=== PATIENT | female | born 1955 | race Caucasian/White ===

== ENCOUNTER 2019-04-15 18:31 | Emergency (ER) | payer OTHER ==
[2019-04-15] MEDS ORDERED: traMADol 50 MG Tab PO ONE (19:04)
[2019-04-15] MEDS ORDERED: Acetaminophen 500 MG Tab PO ONE (19:04)
--- NOTE | 2019-04-15 19:12 | EDM.PDOC ---
ED HPI GENERAL MEDICAL PROBLEM - General Chief Complaint: Lower Extremity Injury/Pain Stated Complaint: RIGHT KNEE PAIN Time Seen by Provider: 04/15/19 18:50 Source of Information: Reports: Patient History Limitations: Reports: No Limitations - History of Present Illness INITIAL COMMENTS - FREE TEXT/NARRATIVE: Patient presented to the ED because of right knee pain. She tripped because of an electric cord and fell. She landed on her right knee but was able to ambulate afterwards with pain. She rate her pain 5/10,sharp and worse with movements. right knee Pain Score (Numeric/FACES): 1 - Related Data Allergies Allergy/AdvReac Type Severity Reaction Status Date / Time salmon Allergy Other Uncoded 04/15/19 18:51 Past Medical History HEENT History: Reports: Cataract, Impaired Vision Cardiovascular History: Reports: High Cholesterol, Hypertension Gastrointestinal History: Reports: GERD [employer] History: Reports: Other (See Below) Other [employer] History: hysterectomy - Past Surgical History HEENT Surgical History: Reports: Cataract Surgery, Other (See Below) Other HEENT Surgeries/Procedures: tooth extraction Social & Family History - Family History Family Medical History: Noncontributory - Tobacco Use Smoking Status *Q: Never Smoker - Caffeine Use Caffeine Use: Reports: Soda - Recreational Drug Use Recreational Drug Use: No Review of Systems - Review of Systems Review Of Systems: See Below Constitutional: Reports: No Symptoms Eyes: Reports: No Symptoms Ears: Reports: No Symptoms Nose: Reports: No Symptoms Mouth/Throat: Reports: No Symptoms Respiratory: Reports: No Symptoms Cardiovascular: Reports: No Symptoms GI/Abdominal: Reports: No Symptoms Genitourinary: Reports: No Symptoms Musculoskeletal: Reports: Other (tenderness over the medial and lateral aspect of the right knee) Neurological: Reports: No Symptoms Psychiatric: Reports: No Symptoms ED EXAM, GENERAL - Physical Exam Exam: See Below Exam Limited By: No Limitations General Appearance: Alert, No Apparent Distress Ears: Normal External Exam, Normal Canal Nose: Normal Inspection, Normal Mucosa, No Blood Throat/Mouth: Normal Inspection, Normal Lips, Normal Teeth, Normal Gums Head: Atraumatic, Normocephalic Neck: Normal Inspection, Supple, Non-Tender, Full Range of Motion Respiratory/Chest: No Respiratory Distress, Lungs Clear, Normal Breath Sounds Cardiovascular: Normal Peripheral Pulses, Regular Rate, Rhythm, No Edema, No Gallop, No Murmur GI/Abdominal: Normal Bowel Sounds, Soft, Non-Tender, No Organomegaly, No Distention Back Exam: Normal Inspection, Full Range of Motion Extremities: Normal Inspection, Normal Range of Motion, Other (tenderness- lateral and medial aspect of right knee) Course - Vital Signs Text/Narrative:: xray reviewed and discussed with patient and verbalized full understanding tramadol 100 mg with tylenol 1000 mg po x1 with significant relief of her pain. Last Recorded V/S: Last Vital Signs Temp 36.6 C 04/15/19 18:45 Pulse 65 04/15/19 18:45 Resp 14 04/15/19 18:45 BP 147/58 H 04/15/19 18:45 Pulse Ox 100 04/15/19 18:45 - Orders/Labs/Meds Meds: Medications Discontinued Medications Generic Name Dose Route Start Last Admin Trade Name Sophie PRN Reason Stop Dose Admin Acetaminophen 1,000 mg 04/15/19 19:04 04/15/19 19:14 Tylenol Extra Strength PO 04/15/19 19:05 1,000 mg ONETIME ONE Administration Tramadol HCl 100 mg 04/15/19 19:04 04/15/19 19:14 Ultram PO 04/15/19 19:05 100 mg ONETIME ONE Administration Tramadol HCl Confirm 04/15/19 19:16 04/15/19 20:22 Ultram Administered 04/15/19 19:17 Not Given Dose 50 mg .ROUTE .STK-MED ONE Departure - Departure Time of Disposition: 19:30 Disposition: Home, Self-Care 01 Condition: Good Clinical Impression: Knee sprain - Discharge Information Instructions: Knee Sprain, Adult, [id number] Referrals: PCP,None [Primary Care Provider] - Forms: ED Department Discharge Additional Instructions: please read discharge instructions on knee sprain apply ice take 2 aleve and 2 extra strength tylenol twice daily for 7 days follow up as needed Sepsis Event Note - Evaluation Sepsis Screening Result: No Definite Risk - Focused Exam Date Exam was Performed: 04/16/19 Time Exam was Performed: 14:07
[2019-04-15] MEDS ORDERED: traMADol 50 MG Tab ONE (19:16)
--- NOTE | 2019-04-16 05:54 | CR ---
INDICATION: Right knee injury - fall. RIGHT KNEE: Four images in three projections of the right knee revealed [id number] severe hypertrophic degenerative changes of the patellofemoral joint and femoral tibial joint surfaces, including medially, laterally and intercondylar notch and spines. There is severe narrowing of the lateral patellofemoral joint space with sclerosis, subchondral cystic change and hypertrophic changes at the patellofemoral joint. Increased density at the suprapatellar bursa raises the question of a small knee joint effusion. However, a definite acute fracture or dislocation was not identified. A large spur off the patella is noted laterally near the joint surface. IMPRESSION: 1. No definite acute fracture or dislocation. 2. Question small knee joint effusion. 3. Severe osteoarthritis, most severe at the patellofemoral joint. There may also be significant narrowing; however, at the medial femorotibial joint space, which could be further evaluated by upright views. DORID
== END 2019-04-15 19:45 | disposition home or self-care (01) ==
LOC: FB.ED 18:31
DX: S83.91XA Sprain of unspecified site of right knee, initial encounter (principal); I10 Essential (primary) hypertension; Z91.013 Allergy to seafood; Z90.710 Acquired absence of both cervix and uterus; Z98.49 Cataract extraction status, unspecified eye; W18.09XA Striking against other object with subsequent fall, initial encounter
CPT/HCPCS: 73562; 99283; A9270

== ENCOUNTER 2023-02-15 06:57 | Day surgery (SDC) | payer MEDICARE ==
[2023-02-15] MEDS ORDERED: Propofol 200 MG/20 ML SDV IV ONE (06:58)
[2023-02-15] MEDS ORDERED: Lactated Ringers 1,000 ML IV SCH (07:00)
[2023-02-15] MEDS ORDERED: Sodium Chloride 0.9% 10 ML Syringe FLUSH PRN (07:00)
== END 2023-02-15 10:15 | disposition home or self-care (01) ==
LOC: FB.SDS 06:57
PROVIDERS: ATTEND Surgery
DX: K21.9 Gastro-esophageal reflux disease without esophagitis (principal); K29.50 Unspecified chronic gastritis without bleeding; K31.7 Polyp of stomach and duodenum; K31.89 Other diseases of stomach and duodenum; I10 Essential (primary) hypertension; G47.00 Insomnia, unspecified; G47.33 Obstructive sleep apnea (adult) (pediatric); R01.1 Cardiac murmur, unspecified; M85.80 Other specified disorders of bone density and structure, unspecified site; E66.9 Obesity, unspecified; Z79.899 Other long term (current) drug therapy; Z88.8 Allergy status to other drugs, medicaments and biological substances; Z90.710 Acquired absence of both cervix and uterus; Z68.30 Body mass index [BMI] 30.0-30.9, adult
CPT/HCPCS: 88305; J2704; J7120